=== PATIENT | male | born 1985 | race Caucasian/White ===

== ENCOUNTER 2017-04-04 19:43 | Emergency (ER) | payer SELFPAY ==
[~2017-04-04] VITALS: Ht 180.3 cm; Wt 108.9 kg
[~2017-04-04 19:43] MED LIST: AMOXICILLIN500 MG PO; CIPRO250 MG PO; CYCLOBENZAPRINE10 MG PO; EPI EZ PEN1 MG/ML IM; MEDROL DOSEPAK4 MG PO; NKHM; SEPTRA DS 800 M1 TAB PO; TRAMADOL HCL50 MG PO; TRIMOX500 MG PO; VIBRA-TAB100 MG PO; VICODIN 500 MG-1 TAB PO
[2017-04-04] MEDS ORDERED: EPIPEN 2-PAK1 MG/ML IJ ×2 (20:06→20:33)
== END 2017-04-04 20:14 | disposition home or self-care (01) ==
LOC: ED 19:43
DX: T63.444A Toxic effect of venom of bees, undetermined, initial encounter (principal); F17.200 Nicotine dependence, unspecified, uncomplicated; Y92.9 Unspecified place or not applicable

== ENCOUNTER 2017-04-21 01:21 | Emergency (ER) | payer SELFPAY ==
[~2017-04-21] VITALS: Ht 180.3 cm; Wt 99.8 kg
[~2017-04-21 01:21] MED LIST changes: +EPIPEN 2-PAK1 MG/ML IJ
[2017-04-21] MEDS ORDERED: ACULAR 3ML 3 ML5 ML OPH (02:27)
[2017-04-21] MEDS ORDERED: TOBRAMYCIN 5 ML5 M1 OPH (02:27)
== END 2017-04-21 02:44 | disposition home or self-care (01) ==
LOC: ED 01:21
DX: S05.02XA Injury of conjunctiva and corneal abrasion without foreign body, left eye, initial encounter (principal); F17.200 Nicotine dependence, unspecified, uncomplicated; X58.XXXA Exposure to other specified factors, initial encounter; Y93.9 Activity, unspecified; Y92.9 Unspecified place or not applicable; Y99.9 Unspecified external cause status

== ENCOUNTER 2019-06-27 09:13 | Emergency (ER) | payer OTHER ==
[~2019-06-27] VITALS: Ht 177.8 cm; Wt 98.9 kg
[~2019-06-27 09:13] MED LIST changes: +ACULAR 3ML 3 ML5 ML OPH; +TOBRAMYCIN 5 ML5 M1 OPH
== END 2019-06-27 10:17 | disposition home or self-care (01) ==
LOC: ED 09:13
DX: S46.912A Strain of unspecified muscle, fascia and tendon at shoulder and upper arm level, left arm, initial encounter (principal); F17.200 Nicotine dependence, unspecified, uncomplicated; Z79.899 Other long term (current) drug therapy; X50.1XXA Overexertion from prolonged static or awkward postures, initial encounter; Y93.H2 Activity, gardening and landscaping; Y92.096 Garden or yard of other non-institutional residence as the place of occurrence of the external cause; Y99.8 Other external cause status

== ENCOUNTER 2019-10-31 23:43 | Emergency (ER) | payer SELFPAY ==
[~2019-10-31] VITALS: Ht 177.8 cm; Wt 99.3 kg
[2019-11-01] MEDS ORDERED: IBUPROFEN600 MG PO (00:33)
[2019-11-01] MEDS ORDERED: AMOXICILLIN500 M2 PO (00:33)
== END 2019-11-01 00:55 | disposition home or self-care (01) ==
LOC: ED 23:43
DX: K08.89 Other specified disorders of teeth and supporting structures (principal); Z79.899 Other long term (current) drug therapy; Z79.2 Long term (current) use of antibiotics

== ENCOUNTER 2021-04-25 11:14 | Emergency (ER) | payer OTHER ==
[~2021-04-25 11:14] MED LIST changes: +AMOXICILLIN500 M2 PO; +IBUPROFEN600 MG PO
[2021-04-25] MEDS ORDERED: CEPHALEXIN500 M1 PO (12:24)
[2021-04-25] MEDS ORDERED: IBUPROFEN600 MG PO (12:24)
== END 2021-04-25 12:44 ==
LOC: ED 11:14
DX: S61.211A Laceration without foreign body of left index finger without damage to nail, initial encounter (principal); F17.200 Nicotine dependence, unspecified, uncomplicated; Z79.2 Long term (current) use of antibiotics; Z79.899 Other long term (current) drug therapy; W29.3XXA Contact with powered garden and outdoor hand tools and machinery, initial encounter; Y93.89 Activity, other specified; Y92.89 Other specified places as the place of occurrence of the external cause; Y99.8 Other external cause status

== ENCOUNTER 2022-02-20 11:09 | Emergency (ER) | payer OTHER ==
[~2022-02-20] VITALS: Ht 177.8 cm; Wt 97.5 kg
[~2022-02-20 11:09] MED LIST changes: +CEPHALEXIN500 M1 PO
[2022-02-20 11:26] LABS: BASO # 0.1 10*3/uL (0.0-0.1); EOS # 0.4 10*3/uL (0.0-0.4); EOS % 6.1 % (1.0-4.0); HEMATOCRIT 44.4 % (42.0-52.0); LYMPH # 1.6 10*3/uL (1.3-4.4); LYMPH % 26.1 % (27.0-41.0); MEAN CELL VOLUME 90.2 fl (80.0-94.0); MEAN CORPUSCULAR HGB 30.5 pg (27.0-31.0); MEAN CORPUSCULAR HGB CONC 33.8 g/dl (33.0-37.0); MEAN PLATELET VOLUME 10.4 fl (9.6-12.3); MONO # 0.4 10*3/uL (0.1-1.0); MONO % 6.5 % (3.0-9.0); NEUT # 3.8 10*3/uL (2.3-7.9); PLATELET COUNT AUTOMATED 257 10*3/uL (130-400); RED BLOOD COUNT 4.92 10*6/uL (4.50-5.90); RED CELL DISTRI WIDTH 12.1 % (0-14.5); WHITE BLOOD COUNT 6.3 10*3/uL (4.8-10.8)
[2022-02-20 11:44] LABS: ALKALINE PHOSPHATASE 62 U/L (45-117); BUN 13 mg/dl (7-24); CHLORIDE 112 mmol/L (98-107); CREATININE 1.05 mg/dL (0.70-1.30); POTASSIUM 4.2 mmol/L (3.5-5.1); SGOT/AST 21 IU/L (3-35); SGPT/ALT 34 U/L (12-78); SODIUM 142 mmol/L (136-145); TOTAL PROTEIN 6.8 gm/dL (6.4-8.2)
[2022-02-20 11:53] LABS: ACT PARTIAL THROMBO TIME 26.5 SECONDS (20.0-32.1)
== END 2022-02-20 14:37 | disposition home or self-care (01) ==
LOC: ED 11:09
PROVIDERS: Emergency Medicine
DX: R07.89 Other chest pain (principal); F17.200 Nicotine dependence, unspecified, uncomplicated; I10 Essential (primary) hypertension

== ENCOUNTER 2022-02-28 20:19 | Emergency (ER) | payer OTHER ==
[~2022-02-28] VITALS: Wt 95.7 kg
[2022-02-28] MEDS ORDERED: AUGMENTIN 875-875 MG PO (23:04)
[2022-02-28] MEDS ORDERED: IBUPROFEN600 MG PO (23:04)
== END 2022-02-28 23:01 | disposition home or self-care (01) ==
LOC: ED 20:19
DX: S62.632A Displaced fracture of distal phalanx of right middle finger, initial encounter for closed fracture (principal); S60.131A Contusion of right middle finger with damage to nail, initial encounter; X58.XXXA Exposure to other specified factors, initial encounter; Y93.89 Activity, other specified; Y92.89 Other specified places as the place of occurrence of the external cause; Y99.8 Other external cause status

== ENCOUNTER → 2022-03-14 | Outpatient (CLI) | payer OTHER ==
[~2022-03-14] MED LIST changes: +AUGMENTIN 875-875 MG PO
== END | disposition home or self-care (01) ==
LOC: CARD 01:42
PROVIDERS: ATTEND Physician Assistant
DX: R07.89 Other chest pain (principal); F17.220 Nicotine dependence, chewing tobacco, uncomplicated; E78.00 Pure hypercholesterolemia, unspecified

== ENCOUNTER 2023-02-04 07:54 | Emergency (ER) | payer BC, OTHER ==
[~2023-02-04] VITALS: Wt 93.9 kg
== END 2023-02-04 08:55 | disposition home or self-care (01) ==
LOC: ED 07:54
DX: H00.013 Hordeolum externum right eye, unspecified eyelid (principal)

== ENCOUNTER 2023-04-28 20:57 | Emergency (ER) | payer BC, OTHER ==
[~2023-04-28] VITALS: Ht 180.3 cm; Wt 95.3 kg
[2023-04-28] MEDS ORDERED: MELOXICAM15 MG PO (23:49)
== END 2023-04-29 00:13 | disposition home or self-care (01) ==
LOC: ED 20:57
DX: S93.401A Sprain of unspecified ligament of right ankle, initial encounter (principal); I10 Essential (primary) hypertension; E78.00 Pure hypercholesterolemia, unspecified; Z98.890 Other specified postprocedural states; W01.0XXA Fall on same level from slipping, tripping and stumbling without subsequent striking against object, initial encounter; Y93.01 Activity, walking, marching and hiking; Y92.009 Unspecified place in unspecified non-institutional (private) residence as the place of occurrence of the external cause; Y99.8 Other external cause status

== ENCOUNTER 2023-12-03 11:09 | Emergency (ER) | payer BC, OTHER ==
[~2023-12-03] VITALS: Ht 172.7 cm; Wt 98.0 kg
[~2023-12-03 11:09] MED LIST changes: +MELOXICAM15 MG PO
[2023-12-03] MEDS ORDERED: Ketorolac Tromethamine 30 MG/ML VIAL IM ONE (11:45)
[2023-12-03 12:07] LABS: BASO # 0.1 10*3/uL (0.0-0.1); BASO % 0.9 % (0.0-1.0); EOS # 0.4 10*3/uL (0.0-0.4); EOS % 6.6 % (1.0-4.0); HEMATOCRIT 45.7 % (42.0-52.0); LYMPH % 34.2 % (27.0-41.0); MEAN CELL VOLUME 91.4 fl (80.0-94.0); MEAN CORPUSCULAR HGB 30.6 pg (27.0-31.0); MEAN CORPUSCULAR HGB CONC 33.5 g/dl (33.0-37.0); MEAN PLATELET VOLUME 10.1 fl (9.6-12.3); MONO # 0.5 10*3/uL (0.1-1.0); MONO % 7.8 % (3.0-9.0); NEUT % 50.3 % (47.0-73.0); PLATELET COUNT AUTOMATED 263 10*3/uL (130-400); RED CELL DISTRI WIDTH 12.2 % (0-14.5); WHITE BLOOD COUNT 5.9 10*3/uL (4.8-10.8)
[2023-12-03 12:24] LABS: BUN 14 mg/dl (9-23); CHLORIDE 107 mmol/L (98-107); POTASSIUM 4.2 mmol/L (3.4-5.1)
[2023-12-03 13:52] LABS: BILIRUBIN Negative (Negative); BLOOD Negative (Negative); CLARITY Clear (Clear); COLOR Yellow (Yellow); GLUCOSE Negative (Negative); KETONE Negative (Negative); LEUKO ESTERASE Negative (Negative); NITRITE Negative (Negative); PH 5.5 (4.5-8.0); UROBILINOGEN 0.2 E.U./dl (0.0-1.0)
[2023-12-03 14:00] LABS: BACTERIA TRACE; EPITHELIAL CELLS 0-2; MUCOUS 2+; WBC 0-2 wbc/hpf (0-5)
[2023-12-03] MEDS ORDERED: MEDROL DOSEPAK4 MG PO (14:25)
[2023-12-03] MEDS ORDERED: NAPROSYN500 MG PO (14:25)
[2023-12-03] MEDS ORDERED: ZANAFLEX4 MG PO (14:25)
== END 2023-12-03 14:34 | disposition home or self-care (01) ==
LOC: ED 11:09
PROVIDERS: Nurse Practitioner Family
DX: S39.012A Strain of muscle, fascia and tendon of lower back, initial encounter (principal); I10 Essential (primary) hypertension; R10.32 Left lower quadrant pain; Z88.8 Allergy status to other drugs, medicaments and biological substances; X50.0XXA Overexertion from strenuous movement or load, initial encounter; Y93.89 Activity, other specified; Y92.89 Other specified places as the place of occurrence of the external cause; Y99.0 Civilian activity done for income or pay

== ENCOUNTER 2024-01-06 17:46 | Emergency (ER) | payer BC, OTHER ==
[~2024-01-06] VITALS: Wt 98.4 kg
[~2024-01-06 17:46] MED LIST changes: +NAPROSYN500 MG PO; +ZANAFLEX4 MG PO
[2024-01-06] MEDS ORDERED: VALTREX1000 MG PO (18:12)
== END 2024-01-06 18:28 | disposition home or self-care (01) ==
LOC: ED 17:46
DX: B02.1 Zoster meningitis (principal); Z98.890 Other specified postprocedural states

== ENCOUNTER 2024-02-23 22:13 | Emergency (ER) | payer BC, OTHER ==
[~2024-02-23] VITALS: Ht 172.7 cm; Wt 98.4 kg
[~2024-02-23 22:13] MED LIST changes: +VALTREX1000 MG PO
[2024-02-23] MEDS ORDERED: METHOCARBAMOL750 M1 PO (23:26)
[2024-02-23] MEDS ORDERED: METHOCARBAMOL 750 MG TAB PO ONE (23:30)
== END 2024-02-23 23:43 | disposition home or self-care (01) ==
LOC: ED 22:13
DX: M54.6 Pain in thoracic spine (principal); M25.552 Pain in left hip; R10.9 Unspecified abdominal pain; R74.8 Abnormal levels of other serum enzymes; Z79.899 Other long term (current) drug therapy; W22.8XXA Striking against or struck by other objects, initial encounter; Y93.89 Activity, other specified; Y92.89 Other specified places as the place of occurrence of the external cause; Y99.8 Other external cause status

== ENCOUNTER 2025-07-06 14:35 | Emergency (ER) | payer BC, OTHER ==
[~2025-07-06] VITALS: Ht 177.8 cm; Wt 99.8 kg
[~2025-07-06 14:35] MED LIST changes: +METHOCARBAMOL750 M1 PO
== END 2025-07-06 16:32 | disposition home or self-care (01) ==
LOC: ED 14:35
DX: M77.8 Other enthesopathies, not elsewhere classified (principal); M76.62 Achilles tendinitis, left leg; I10 Essential (primary) hypertension; E78.00 Pure hypercholesterolemia, unspecified; Z87.891 Personal history of nicotine dependence